=== PATIENT | female | born 2000 | race Caucasian/White ===

== ENCOUNTER 2021-01-16 21:48 | Emergency (ER) | payer BC ==
--- NOTE | 2021-01-16 23:00 | EDM.PDOC ---
ED HPI GENERAL MEDICAL PROBLEM - General Chief Complaint: General Stated Complaint: RIGHT SIDE OF FACE WEAKER Time Seen by Provider: 01/16/21 22:50 Source of Information: Reports: Patient History Limitations: Reports: No Limitations - History of Present Illness INITIAL COMMENTS - FREE TEXT/NARRATIVE: Patient presented to the ED because of numbness on the right side of her face, ptosis,Rt side with mild facial droop. She has a history of having cancre sore i the past. No other neuro symptoms. - Related Data Allergies Allergy/AdvReac Type Severity Reaction Status Date / Time Penicillins Allergy Rash Verified 01/16/21 22:47 Home Meds: Home Meds Albuterol Sulfate [Albuterol Sulfate Hfa] 1 each INH Q1H PRN 01/16/21 [History] FLUoxetine [PROzac] 50 mg PO DAILY 01/16/21 [History] predniSONE 20 mg PO DAILY #10 tab 01/16/21 [Rx] ED ROS GENERAL - Review of Systems Review Of Systems: See Below Constitutional: Reports: No Symptoms HEENT: Reports: Other (ptosis rt side) Respiratory: Reports: No Symptoms Cardiovascular: Reports: No Symptoms Endocrine: Reports: No Symptoms GI/Abdominal: Reports: No Symptoms : Reports: No Symptoms Musculoskeletal: Reports: No Symptoms Skin: Reports: No Symptoms Neurological: Reports: Numbness Psychiatric: Reports: No Symptoms ED EXAM, GENERAL - Physical Exam Exam: See Below Exam Limited By: No Limitations General Appearance: Alert, No Apparent Distress Eye Exam: Bilateral Eye: Other (ptosis rt eye) Nose: Normal Inspection, Normal Mucosa Throat/Mouth: Normal Inspection, Normal Lips, Normal Teeth Head: Atraumatic, Normocephalic Neck: Normal Inspection, Supple, Non-Tender, Full Range of Motion Respiratory/Chest: No Respiratory Distress, Lungs Clear, Normal Breath Sounds, No Accessory Muscle Use, Chest Non-Tender Cardiovascular: Normal Peripheral Pulses, Regular Rate, Rhythm, No Edema, No JVD, No Murmur GI/Abdominal: Normal Bowel Sounds, Soft, Non-Tender, No Organomegaly Back Exam: Normal Inspection, Full Range of Motion Neurological: Alert, Oriented, CN II-XII Intact, Normal Cognition, Normal Gait, Normal Reflexes, No Motor/Sensory Deficits Course - Vital Signs Text/Narrative:: Reassurance Last Recorded V/S: Last Vital Signs Temp 36.8 C 01/16/21 22:48 Pulse 87 01/16/21 22:48 Resp 16 01/16/21 22:48 BP 125/86 01/16/21 22:48 Pulse Ox 100 01/16/21 22:48 Departure - Departure Time of Disposition: 23:00 Disposition: Home, Self-Care 01 Condition: Good Clinical Impression: Langston palsy - Discharge Information Prescriptions: predniSONE 20 mg PO DAILY #10 tab Instructions: Langston Palsy, Adult Referrals: PCP,None [Primary Care Provider] - Forms: ED Department Discharge Additional Instructions: Please read discharge instructions on langston's palsy Take prednisone 20 mg daily for 10 days Follow up after 10 days if no improvement of your symptoms Sepsis Event Note (ED) - Evaluation Sepsis Screening Result: No Definite Risk - Focused Exam Vital Signs: Vital Signs Temp Pulse Resp BP Pulse Ox 01/16/21 22:48 36.8 C 87 16 125/86 100
== END 2021-01-16 23:09 | disposition home or self-care (01) ==
LOC: FB.ED 21:48
DX: G51.0 Bell's palsy (principal); H02.401 Unspecified ptosis of right eyelid; Z88.0 Allergy status to penicillin
CPT/HCPCS: 99283